=== PATIENT | female | born 1965 | race Caucasian/White ===

== ENCOUNTER → 2016-10-16 | Outpatient (CLI) | payer MEDICARE, MEDICAID ==
--- NOTE | 2016-10-16 14:24 | REP ---
MR CERVICAL SPINE WITHOUT CONTRAST: HISTORY: Radiculopathy. COMPARISON: 07/18/2007. Facet hypertrophy is present on the left at the C3-4 level. This produces minimal narrowing of the left C3 neural foramen. The right C3 neural foramen is patent. A disc bulge is present at the C4-5 level. There is mild effacement of the thecal sac without spinal cord compression. The C4 neural foramina are patent. A disc bulge with associated osteophyte formation is present at the C5-6 level. There is moderate effacement of the thecal sac without spinal cord compression. Bilateral uncinate process hypertrophy is present. This produces moderate narrowing of the C5 neural foramina. A disc bulge with associated osteophyte formation is present at the C6-7 level. There is moderate effacement of the thecal sac without spinal cord compression. Bilateral uncinate process hypertrophy is present. This produces minimal and mild narrowing of the right and left C6 neural foramina respectfully. There is no other disc bulge or herniation. The remaining neural foramina are patent. The spinal cord is normal in signal intensity. There is no intradural extramedullary lesion. The C4-5 through C6-7 intervertebral discs are decreased in height consistent with disc degeneration. Normal signal intensity is present in the cervical vertebral bodies. IMPRESSION: There is cervical spondylolysis at the C4-5 through C6-7 levels without spinal cord compression. The foraminal narrowing at the C5-6 level and findings at the C6-7 level are new. Signed by Raffaele Garay MD 10/16/2016 02:27 P
== END | disposition home or self-care (01) ==
LOC: M RAD 12:42
PROVIDERS: ATTEND Orthopaedic Surgery
DX: M54.12 Radiculopathy, cervical region (principal)

== ENCOUNTER → 2020-06-14 | Outpatient (CLI) | payer MEDICARE, MEDICAID ==
[~2020-06-14] MED LIST: BENA25CA4 PO; CARI1TAB7 PO; CHOL1250 PO; D3 U5000 PO; DILA4TAB13 PO; GABA-845 PO; HUMI40KI2 SUBQ; OMEP40CA97 PO; OXYC10TA12 PO; PRAV80TA2 PO
--- NOTE | 2020-06-14 16:19 | REPVR ---
PROCEDURE INFORMATION: Exam: MR Cervical Spine Without Contrast Exam date and time: 06/14/2020 3:15 PM Age: 55 years old Clinical indication: Patient HX: Chronic neck pain; Additional info: Cervicalgia TECHNIQUE: Imaging protocol: Multiplanar magnetic resonance images of the cervical spine without contrast. COMPARISON: MRI-Spine,Cervical without con 10/16/2016 1:24 PM FINDINGS: Vertebrae: There is no fracture. There is slight reversal of cervical curvature. Alignment is otherwise normal. Stir images demonstrate no evidence of bone marrow edema or marrow infiltrating lesion. Spinal cord: The cervical spinal cord and cervicomedullary junction are normal. C2-C3: No disc bulge. Mild left facet hypertrophy. No central or foraminal stenosis. C3-C4: No significant disc bulge. There is facet hypertrophy with minimal left foraminal stenosis. No central stenosis. No change from prior scan. C4-C5: Mild disc bulge. No central or foraminal stenosis. No change from prior scan. C5-C6: There is mild retrolisthesis. There is disc space narrowing. There is a posterior osteophyte and disc bulge. This effaces the ventral subarachnoid space just reaching the ventral aspect of the spinal cord without displacement or deformity. This results in mild central spinal stenosis. There is moderate bilateral foraminal stenosis. There is was present on prior scan. C6-C7: Mild spondylosis. Disc space narrowing. Small posterior osteophyte and disc bulge slightly flattening the ventral aspect of the thecal sac. There is minimal central stenosis. There is mild right and moderate left foraminal stenosis. This has progressed compared with prior scan. C7-T1: No significant disc disease. No significant spinal stenosis. Vertebral arteries: Expected flow voids in the vertebral arteries. Soft tissues: There is no paraspinous or intraspinal mass, hemorrhage or fluid collection. Other findings: There is multilevel cervical disc dehydration. No disc edema. IMPRESSION: 1. No fracture or acute findings. 2. Spondylosis and degenerative findings detailed above . Electronically signed by: Randall Porter On 06/14/2020 16:19:44 PM
== END ==
LOC: M RAD 14:05
PROVIDERS: ATTEND Physician Assistant
DX: M50.222 Other cervical disc displacement at C5-C6 level (principal); M50.223 Other cervical disc displacement at C6-C7 level; M25.78 Osteophyte, vertebrae

== ENCOUNTER → 2020-07-15 | Outpatient (CLI) | payer MEDICARE, MEDICAID ==
--- NOTE | 2020-07-15 15:23 | REP ---
INDICATION: SMOKER COMPARISON: None. TECHNIQUE: Axial noncontrast images from the thoracic inlet to the upper abdomen using low-dose lung screening technique (LDCT). FINDINGS: Lung jones are well aerated, symmetric and essentially clear. No suspicious consolidation, nodule or mass lesion appreciated. Very minimal posterior basilar dependent changes are identified. No effusion. No pneumothorax. Tracheobronchial tree is patent. IMPRESSION: Lung rads category 1. Management recommendations include annual low-dose CT surveillance. <Electronically signed by Epi Pollack > 07/15/20 [id number]
== END ==
LOC: M RAD 14:20
PROVIDERS: ATTEND Internal Medicine Hematology & Oncology
DX: F17.218 Nicotine dependence, cigarettes, with other nicotine-induced disorders (principal); Z12.2 Encounter for screening for malignant neoplasm of respiratory organs

== ENCOUNTER → 2021-12-15 | Outpatient (CLI) | payer MEDICARE, MEDICAID ==
[~2021-12-15] MED LIST changes: +GABA-283 PO; -GABA-845 PO; +OMEP40CA4 PO; -OMEP40CA97 PO
== END ==
LOC: M RAD 13:14
PROVIDERS: ATTEND Internal Medicine Hematology & Oncology
DX: D72.829 Elevated white blood cell count, unspecified (principal); Z87.891 Personal history of nicotine dependence

== ENCOUNTER → 2022-01-13 | Outpatient (CLI) | payer MEDICARE, MEDICAID ==
[~2022-01-13] MED LIST changes: +ELIQ5TAB PO; +LIDOCAINE 1% MDV 20ML VIAL As Ordered ONE
[2022-01-13 12:55] LABS: BASO # 0.1 10^3/uL (0.0-0.2); BASO % 0.4 % (0.0-1.0); EOS # 0.2 10^3/uL (0.0-0.5); EOS % 1.2 % (0.0-3.0); HEMATOCRIT 40.8 % (36.0-47.0); HEMOGLOBIN 13.6 g/dl (12.0-15.5); LYMPH # 4.5 10^3/uL (1.5-5.0); LYMPH % 35.3 % (24.0-44.0); MEAN CORPUSCULAR HEMOGLOBIN 31.1 pg (27.0-33.0); MEAN CORPUSCULAR HGB CONC 33.3 g/dl (32.0-36.5); MEAN CORPUSCULAR VOLUME 93.2 fl (80.0-96.0); MONO # 0.5 10^3/uL (0.0-0.8); MONO % 3.8 % (2.0-8.0); NEUTROPHILS # 7.5 10^3/uL (1.5-8.5); NEUTROPHILS % 58.8 % (36.0-66.0); PLATELET COUNT, AUTOMATED 262 10^3/uL (150-450); RED BLOOD COUNT 4.38 10^6/uL (4.00-5.40); WHITE BLOOD COUNT 12.8 10^3/uL (4.0-10.0)
[2022-01-13 13:22] VITALS: BP 128/74
== END ==
LOC: M IRPRO 11:47
PROVIDERS: ATTEND Internal Medicine Hematology & Oncology
DX: D72.829 Elevated white blood cell count, unspecified (principal)

== ENCOUNTER → 2022-11-03 | Outpatient (CLI) | payer MEDICARE, MEDICAID ==
[~2022-11-03] MED LIST changes: +LANTINJ4 SC; -LIDOCAINE 1% MDV 20ML VIAL As Ordered ONE
== END ==
LOC: M RAD 14:06
PROVIDERS: ATTEND Internal Medicine Hematology & Oncology
DX: D72.829 Elevated white blood cell count, unspecified (principal)

== ENCOUNTER → 2024-04-28 | Outpatient (REF) | payer MEDICARE, MEDICAID ==
[~2024-04-28] MED LIST changes: +BACL5TAB2 PO; -GABA-283 PO; +GABA-284 PO; +GABA600T4 PO; +SEMA0.257; +ZYRTTAB8 PO
[2024-04-28 16:45] LABS: APPEARANCE, URINE CLEAR (CLEAR); BACTERIA, URINE AUTO NEGATIVE (NEGATIVE); BILIRUBIN, URINE AUTO NEGATIVE (NEGATIVE); BLOOD, URINE BLOOD NEGATIVE (NEGATIVE); COLOR, URINE STRAW (YELLOW); GLUCOSE, URINE (UA) AUTO NEGATIVE (NEGATIVE); KETONE, URINE AUTO NEGATIVE (NEGATIVE); LEUKOCYTE ESTERASE, URINE AUTO NEGATIVE (NEGATIVE); NITRITE, URINE AUTO NEGATIVE (NEGATIVE); PROTEIN, URINE AUTO NEGATIVE (NEGATIVE); RBC, URINE AUTO 0 /HPF (0-3); SPECIFIC GRAVITY URINE AUTO 1.005 (1.002-1.035); SQUAMOUS EPITHELIAL CELL UR AU 0 /HPF (0-6); UROBILINOGEN, URINE AUTO 0.2 mg/dL (0.0-2.0); WBC, URINE AUTO 0 /HPF (0-3)
[2024-04-28 17:11] LABS: TOTAL PROTEIN,RANDOM URINE < 6.0 MG/DL (0.0-14.0)
[2024-04-28 17:46] LABS: BASO # 0.1 10^3/uL (0.0-0.2); BASO % 0.5 % (0.0-1.0); EOS # 0.2 10^3/uL (0.0-0.5); EOS % 1.9 % (0.0-3.0); HEMOGLOBIN 13.6 g/dl (12.0-15.5); LYMPH # 4.7 10^3/uL (1.5-5.0); LYMPH % 45.8 % (24.0-44.0); MEAN CORPUSCULAR HEMOGLOBIN 30.6 pg (27.0-33.0); MEAN CORPUSCULAR HGB CONC 32.4 g/dl (32.0-36.5); MEAN CORPUSCULAR VOLUME 94.4 fl (80.0-96.0); MONO # 0.7 10^3/uL (0.0-0.8); MONO % 6.7 % (2.0-8.0); NEUTROPHILS # 4.6 10^3/uL (1.5-8.5); NEUTROPHILS % 44.9 % (36.0-66.0); PLATELET COUNT, AUTOMATED 258 10^3/uL (150-450); RED BLOOD COUNT 4.45 10^6/uL (4.00-5.40); WHITE BLOOD COUNT 10.3 10^3/uL (4.0-10.0)
[2024-04-28 17:52] LABS: ERYTHROCYTE SEDIMENTATION RATE 55 mm/hr (0-30)
[2024-04-28 18:14] LABS: C REACTIVE PROTEIN QUANTITATIV < 0.40 MG/DL (<1.0); HEPATITIS B SURFACE ANTIBODY NEGATIVE (POSITIVE)
[2024-04-28 18:15] LABS: FOLATE > 24.00 NG/ML (>5.4); TOTAL 25(OH) VITAMIN D 55.9 NG/ML (20.0-100.0); VITAMIN B12 LEVEL 548 PG/ML (211-911)
[2024-04-28 18:16] LABS: ALBUMIN 3.8 G/DL (3.2-5.2); ALKALINE PHOSPHATASE 93 U/L (46-116); ALT/SGPT 19 U/L (7.0-40); AST/SGOT 17 U/L (<34); BILIRUBIN,DIRECT < 0.1 MG/DL (<0.4); BILIRUBIN,TOTAL 0.3 MG/DL (0.3-1.2); BLOOD UREA NITROGEN 9 MG/DL (9-23); CALCIUM LEVEL 8.8 MG/DL (8.3-10.6); CARBON DIOXIDE LEVEL 29 MMOL/L (20-31); CHLORIDE LEVEL 103 MMOL/L (98-107); COMPLEMENT C3 144.9 MG/DL (90.0-170.0); COMPLEMENT C4 24.7 MG/DL (12-36); CREATININE FOR GFR 0.71 MG/DL (0.55-1.30); GLOMERULAR FILTRATION RATE > 60.0 (>45); GLUCOSE, FASTING 122 MG/DL (74-106); IRON (FE) 68 UG/DL (50-170); MAGNESIUM LEVEL 1.9 MG/DL (1.8-2.4); POTASSIUM SERUM 3.6 MMOL/L (3.5-5.1); SODIUM LEVEL 138 MMOL/L (136-145); TOTAL IRON BINDING CAPACITY 357 UG/DL (250-425); TOTAL PROTEIN 7.3 G/DL (5.7-8.2)
[2024-04-28 18:26] LABS: HEPATITIS B SURFACE ANTIGEN NEGATIVE (NEGATIVE)
[2024-04-28 18:47] LABS: HEPATITIS C VIRUS ABY INDEX 0.09 INDEX (<0.8)
== END ==
LOC: M SFHCRHEU 06:57
PROVIDERS: ATTEND Internal Medicine
DX: M06.9 Rheumatoid arthritis, unspecified (principal); R53.82 Chronic fatigue, unspecified; R76.8 Other specified abnormal immunological findings in serum; Z11.59 Encounter for screening for other viral diseases; Z79.899 Other long term (current) drug therapy; Z79.01 Long term (current) use of anticoagulants

== ENCOUNTER → 2024-06-20 | Outpatient (REF) | payer MEDICARE, MEDICAID ==
[~2024-06-20] MED LIST changes: +GABA-1490 PO; -GABA600T4 PO
[2024-06-20 13:46] LABS: IMMUNOGLOBULIN A 238.7 MG/DL (40-350); IMMUNOGLOBULIN G 1129 MG/DL (650-1600)
[2024-06-21 19:28] LABS: T P ELECTROPHORESIS SO 7.4 g/dL (6.1-8.1)
[2024-06-23 08:22] LABS: ALBUMIN SPEP 4.2 g/dL (3.8-4.8); ALPHA-1-GLOBULINS SO 0.3 g/dL (0.2-0.3); BETA 2 GLOBULIN 0.4 g/dL (0.2-0.5); BETA-GLOBULIN SO 0.5 g/dL (0.4-0.6); GAMMA GLOBULINS SO 1.1 g/dL (0.8-1.7)
== END ==
LOC: M SFHCRHEU 10:05
PROVIDERS: ATTEND Internal Medicine
DX: M06.9 Rheumatoid arthritis, unspecified (principal)

== ENCOUNTER → 2024-07-19 | Outpatient (CLI) | payer MEDICARE, MEDICAID ==
[~2024-07-19] VITALS: Ht 160 cm; Wt 63.1 kg
[~2024-07-19] MED LIST changes: +ALBUTEROL SULFATE 2.5MG/0.5ML INH NEB SOLN INH PRN; +EPINEPHrine INJ 1 MG/ML 1ML AMP IM PRN; +diphenhydrAMINE 25MG CAP PO ONE; +diphenhydrAMINE 50MG/ML VIAL IV PRN; +methylPREDNISolone 125MG 2ML VIAL IV PRN
[2024-07-19 13:40] VITALS: BP 127/68; O2SAT 99
[2024-07-19] MEDS: ACETAMINOPHEN 325 MG TAB PO ONE (14:19)
[2024-07-19] MEDS: diphenhydrAMINE 25MG CAP PO ONE (14:19)
[2024-07-19] MEDS: TOCILIZUMAB IV ONE (14:51)
[2024-07-19] MEDS: NS IV ONE (14:51)
[2024-07-19 16:21] VITALS: BP 128/69; O2SAT 98
== END ==
LOC: M INFU 12:58
PROVIDERS: ATTEND Internal Medicine
DX: M06.9 Rheumatoid arthritis, unspecified (principal); Z91.041 Radiographic dye allergy status
CPT/HCPCS: 96365; J3262

== ENCOUNTER → 2024-09-15 | Outpatient (REF) | payer MEDICARE, MEDICAID ==
[~2024-09-15] MED LIST changes: -ALBUTEROL SULFATE 2.5MG/0.5ML INH NEB SOLN INH PRN; -EPINEPHrine INJ 1 MG/ML 1ML AMP IM PRN; -diphenhydrAMINE 25MG CAP PO ONE; -diphenhydrAMINE 50MG/ML VIAL IV PRN; -methylPREDNISolone 125MG 2ML VIAL IV PRN
[2024-09-15 13:23] LABS: BASO # 0.1 10^3/uL (0.0-0.2); BASO % 0.6 % (0.0-1.0); EOS # 0.3 10^3/uL (0.0-0.5); HEMATOCRIT 43.2 % (36.0-47.0); HEMOGLOBIN 14.3 g/dl (12.0-15.5); LYMPH # 5.1 10^3/uL (1.5-5.0); LYMPH % 44.8 % (24.0-44.0); MEAN CORPUSCULAR HEMOGLOBIN 30.4 pg (27.0-33.0); MEAN CORPUSCULAR HGB CONC 33.1 g/dl (32.0-36.5); MEAN CORPUSCULAR VOLUME 91.7 fl (80.0-96.0); MONO # 0.9 10^3/uL (0.0-0.8); MONO % 7.9 % (2.0-8.0); NEUTROPHILS # 4.9 10^3/uL (1.5-8.5); NEUTROPHILS % 43.4 % (36.0-66.0); PLATELET COUNT, AUTOMATED 343 10^3/uL (150-450); RED BLOOD COUNT 4.71 10^6/uL (4.00-5.40); WHITE BLOOD COUNT 11.4 10^3/uL (4.0-10.0)
[2024-09-15 13:29] LABS: ALBUMIN 3.6 G/DL (3.2-5.2); ALKALINE PHOSPHATASE 73 U/L (35-104); ALT/SGPT 22 U/L (7.0-40); AST/SGOT 16 U/L (<34); BILIRUBIN,DIRECT < 0.1 MG/DL (<0.4); BILIRUBIN,TOTAL 0.3 MG/DL (0.3-1.2); BLOOD UREA NITROGEN 16 MG/DL (9-23); C REACTIVE PROTEIN QUANTITATIV < 0.50 MG/DL (<1.0); CALCIUM LEVEL 10.6 MG/DL (8.3-10.6); CARBON DIOXIDE LEVEL 29 MMOL/L (20-31); CHLORIDE LEVEL 103 MMOL/L (98-107); CREATININE FOR GFR 0.83 MG/DL (0.55-1.30); GLOMERULAR FILTRATION RATE > 60.0 (>45); GLUCOSE, FASTING 168 MG/DL (74-106); POTASSIUM SERUM 5.1 MMOL/L (3.5-5.1); SODIUM LEVEL 141 MMOL/L (136-145); TOTAL PROTEIN 7.9 G/DL (5.7-8.2)
[2024-09-15 13:53] LABS: ERYTHROCYTE SEDIMENTATION RATE 65 mm/hr (0-30)
== END ==
LOC: M SFHCRHEU 09:09
PROVIDERS: ATTEND Internal Medicine
DX: M06.9 Rheumatoid arthritis, unspecified (principal)